=== PATIENT | female | born 1970 | race Caucasian/White ===

== ENCOUNTER 2025-07-17 10:39 | Emergency (ER) | payer OTHER ==
[2025-07-17] MEDS ORDERED: HYDROcodone/Acetaminophen 10/325 mg Tablet ONE (11:37)
== END 2025-07-17 13:45 | disposition home or self-care (01) ==
LOC: MADERS 10:39
DX: S16.1XXA Strain of muscle, fascia and tendon at neck level, initial encounter (principal); S50.811A Abrasion of right forearm, initial encounter; Z79.899 Other long term (current) drug therapy; V49.9XXA Car occupant (driver) (passenger) injured in unspecified traffic accident, initial encounter
CPT/HCPCS: 72125; J2543